=== PATIENT | female | born 1945 | race Two or more races ===

== ENCOUNTER 2017-07-18 09:36 | Day surgery (SDC) | payer MEDICARE, OTHER ==
[2017-07-18] MEDS ORDERED: PROPOFOL 200 MG/20 ML BOTTLE IV ONE (09:37)
[2017-07-18] MEDS ORDERED: LIDOCAINE HCL 2% 20 ML VIAL MC ONE (09:37)
[2017-07-18] MEDS ORDERED: IV NORMAL SALINE 1000 ML BAG IV ONE (09:37)
[2017-07-18 10:19] LABS: BASOPHILS % (AUTO) 0.4 % (0.0-2.0); EOSINOPHILS # (AUTO) 0.1 K/uL (0.0-0.7); HEMATOCRIT 39.2 % (37-47); HEMOGLOBIN 13.3 G/DL (12.0-16.0); LYMPHOCYTES # (AUTO) 1.9 K/UL (0.8-4.8); LYMPHOCYTES % (AUTO) 33.6 % (20.5-51.5); MEAN CORPUSCULAR HEMOGLOBIN 29.5 UUG (27.0-31.0); MEAN CORPUSCULAR HGB CONC 34 g/dL (32.0-37.0); MONOCYTES # (AUTO) 0.4 K/UL (0.1-1.30); MONOCYTES % (AUTO) 6.5 % (0.0-11.0); NEUTROPHILS # (AUTO) 3.1 K/UL (1.8-8.9); NEUTROPHILS % (AUTO) 57.5 % (38.5-71.5); PLATELET COUNT (AUTO) 187 K/UL (150-450); RED BLOOD CELL COUNT(AUTO) 4.51 MIL/UL (4.2-5.4); WHITE BLOOD COUNT (AUTO) 5.5 K/UL (4.0-11.2)
[2017-07-18 10:26] LABS: CARBON DIOXIDE 32 mmol/L (21-32); CHLORIDE 100 mmol/L (98-107); CREATININE 0.9 mg/dL (0.6-1.3); GLUCOSE 116 mg/dL (74-106); UREA NITROGEN, BLOOD 30 mg/dL (7-18)
[2017-07-18 10:28] LABS: *BILIRUBIN,URIN NEGATIVE (NEGATIVE); *BLOOD, URINE NEGATIVE (NEGATIVE); *CLARITY,URINE CLEAR (CLEAR); *COLOR,URINE YELLOW (YELLOW); *KETONES,URINE NEGATIVE (NEGATIVE); *PROTEIN,URINE NEGATIVE (NEGATIVE); *UROBILINOGEN,URINE 0.2 E.U./dl (NORMAL); LEUKOCYTE ESTERASE ,URINE NEGATIVE (NEGATIVE); NITRITE, URINE NEGATIVE (NEGATIVE); PH,URINE 7.5 (5.0-8.0); UGLUCOSE NEGATIVE (NEGATIVE)
[2017-07-18 10:38] LABS: BACTERIA,URINE NONE SEEN /HPF (NONE SEEN); RBC,URINE 0-3 /HPF (0-3); SQUAMOUS EPITHELIAL CELL,UR FEW /HPF (NONE SEEN); WBC,URINE 0-3 /HPF (0-3)
[2017-07-18] MEDS ORDERED: MIDAZOLAM HCL 2 MG/2 ML VIAL ONE (11:06)
[2017-07-18] MEDS ORDERED: FENTANYL CITRATE 100 MCG/2 ML AMPUL ONE (11:06)
[2017-07-18] MEDS ORDERED: TRIAMCINOLONE ACETONIDE 40 MG/1 ML VIAL ONE (11:15)
[2017-07-18] MEDS ORDERED: NORMAL SALINE 10 ML VIAL ONE (11:15)
[2017-07-18] MEDS ORDERED: LIDOCAINE-MPF 1% 5 ML AMPUL ONE (11:15)
[2017-07-18] MEDS ORDERED: BUPIVACAINE 0.25% 30 ML VIAL ONE (11:15)
[2017-07-18] MEDS ORDERED: IOHEXOL-240 MG , 50 ML VIAL IV ONE (11:15)
== END 2017-07-18 12:53 | disposition home or self-care (01) ==
LOC: DS 09:36
PROVIDERS: ATTEND Anesthesiology
DX: M51.16 Intervertebral disc disorders with radiculopathy, lumbar region (principal); I10 Essential (primary) hypertension; Z79.899 Other long term (current) drug therapy; I25.10 Atherosclerotic heart disease of native coronary artery without angina pectoris
CPT/HCPCS: 36415; 71010; 72100; 76000; 85025; 85730; 93005; A4663; J2250; J3010; J3301; J3490; J7030; Q9966

== ENCOUNTER 2017-07-24 06:36 | Day surgery (SDC) | payer MEDICARE, OTHER ==
[2017-07-24] MEDS ORDERED: TRIAMCINOLONE ACETONIDE 40 MG/1 ML VIAL ONE (07:17)
[2017-07-24] MEDS ORDERED: LIDOCAINE HCL-MPF 1% 5 ML VIAL ONE (07:18)
[2017-07-24] MEDS ORDERED: NORMAL SALINE 10 ML VIAL ONE (07:18)
[2017-07-24] MEDS ORDERED: BUPIVACAINE 0.25% 30 ML VIAL ONE (07:24)
[2017-07-24] MEDS ORDERED: IOHEXOL-240 MG , 50 ML VIAL IV ONE (07:24)
[2017-07-24] MEDS ORDERED: FENTANYL CITRATE 100 MCG/2 ML AMPUL ONE (07:46)
== END 2017-07-24 09:15 | disposition home or self-care (01) ==
LOC: DS 06:36
PROVIDERS: ATTEND Anesthesiology
DX: M51.16 Intervertebral disc disorders with radiculopathy, lumbar region (principal); I10 Essential (primary) hypertension; M19.90 Unspecified osteoarthritis, unspecified site
CPT/HCPCS: 36415; 72100; 76000; 84132; A4663; J3010; J3301; J3490; Q9966